=== PATIENT | female | born 1935 | race Caucasian/White ===

== ENCOUNTER 2016-12-12 08:34 | Day surgery (SDC) | payer BC ==
[2016-12-09 12:02] LABS: HEMOGLOBIN 9.9 g/dL (12.0-16.0)
[2016-12-09 12:03] LABS: HEMATOCRIT 31.9 % (36.0-48.0)
[2016-12-09 12:12] LABS: BUN (BLOOD UREA NITROGEN) 17 MG/DL (6-23); CHLORIDE, SERUM 108 MMOL/L (96-112); CO2 (CARBON DIOXIDE) 27 MMOL/L (24-34); CREATININE 0.87 MG/DL (0.55-1.02); GFR AFRICAN AMERICAN 73 ML/MIN (>=60); GFR NON AFRICAN AMERICAN 63 ML/MIN (>=60); GLUCOSE, SERUM 108 MG/DL (60-99); POTASSIUM, SERUM 4.3 MMOL/L (3.5-5.3); SODIUM, SERUM 142 MMOL/L (135-148)
[~2016-12-12] VITALS: Ht 162.6 cm; Wt 72.6 kg
--- NOTE | ~2016-12-12 | OP ---
Record Of Operation [facility] [address] [place]. 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 PROCEDURES PERFORMED: 1. Abdominal aortogram and bilateral iliac artery angiography with catheterization. 2. Thrombectomy of the right common and external iliac artery with a Pathway 2.4/3.4 catheter, secondary angioplasty 7 x 150 balloon followed by a 7 x 150 Viabahn of the common and external iliac artery. 3. Thrombectomy of the left common and external iliac artery with secondary angioplasty 7 x 150 balloon and 7 x 150 Viabahn stent reconstruction. ANESTHESIA: Local MAC. COMPLICATIONS: None. INDICATION FOR PROCEDURE: Secondary to this pleasant 81-year-old critically ill patient presenting with evidence of bilateral critical ischemia, recommendations were made for arteriography to further define her peripheral vascular disease and repair this if appropriate. Risks and benefits were discussed. Consent was obtained. DETAILS OF PROCEDURE: The patient was brought to the endovascular operating room, placed in the supine position, prepped and draped in routine sterile fashion with attention to the bilateral groin region. The right femoral artery was then cannulated, micropuncture needle followed by wire and sheath. Arteriogram demonstrated occlusion of the patency of the common femoral artery, but occlusion of the external iliac artery. A wire was then passed through this occlusion, through the stent all into the aorta and an abdominal aortogram was performed showing a patent aortic stent and then however occluded common and external iliac stents. Next, a 0.14 wire was then placed and thrombectomy was performed using the pathway 2.4/3.4 catheter retrograde from the external into the common iliac artery into the aorta. Postangioplasty was then performed with a 7 x 150 balloon throughout the external iliac artery, common iliac artery, and abdominal aorta showing a wide patency of this vessel at this point. Next thrombectomy was then performed to the left common and external iliac artery in similar technique and aorta. Angioplasty was performed with a 7 x 150 balloon and then completion imaging showed this to be patent. A 7 x 150 stent was then passed into the common iliac artery on the right and deployed all into the external iliac artery on the right. Next, to the left a 7 x 150 Viabahn stent was passed into the common iliac artery on the left and deployed into the left external iliac artery. Postangioplasty was then completed. Arteriograms demonstrated wide patency of these vessels with excellent flow into the lower extremities. At this point, wires, catheters, and sheaths were then removed. The bilateral groins were closed with StarClose. The patient tolerated the procedure well. Record Of Operation [place] [id number] [facility] [place]. [address] NAME: DARRON MANUEL : 39 STATUS : [facility] PAT#: [id number] AGE: 81 ADM/REG DATE : 12/12/16 MR#: [id number] REPORT SERV DATE: 12/31/16 DICTATED BY: DUONG CHAMORRO DATE: 12/30/16 REPORT STATUS : Draft TRANSCRIBED BY: ERIC DATE: 12/30/16 CL/ERIC Duong Chamorro M.D. / [id number] CC: Keny Landry NP
[~2016-12-12 08:34] MED LIST: ACET500CAP PO; ASA5GR PO; ASAB PO; C5 PO; CALCIUM PO; CALTRAT600 PO; CELEXA20 PO; COUMADIN3 MG PO; COUMADIN4 MG PO; DSS PO; ELDERTONIC PO; FESO4 PO; FLONASE NAS; LIPOTRIAD1 CAP PO; MAGNESIUM PO; MULTIPLE VIT PO; NEXIUM40 PO; PCET PO; PLAVIX PO; PRAVAC PO; PREV30 PO; PROAIR HFA INH; PROLENSA1.6 ML OPH; RESTASIS OPH; SPIRO25 PO; T PO; VIT B COMPLEX; VITAMIN B COMPLEX PO; VITAMIN C100 MG PO; VITAMIN D2000 UNIT PO
[2016-12-12 09:47] LABS: INTERNATIONAL NORMAL RATI 1.1 UNITS (-)
[2016-12-12] MEDS ORDERED: PLAVIX PO (14:12)
== END 2016-12-12 17:23 | disposition home or self-care (01) ==
LOC: SDC 08:34 → SSU1 13:26 → SDC 13:30
PROVIDERS: Specialist
PROC: B41DZZZ Fluoroscopy of Aorta and Bilateral Lower Extremity Arteries (ICD-10-PCS; principal; 2016-12-12 11:15)
PROC: 047H3ZZ Dilation of Right External Iliac Artery, Percutaneous Approach (ICD-10-PCS; 2016-12-12 11:15)
PROC: 047C3ZZ Dilation of Right Common Iliac Artery, Percutaneous Approach (ICD-10-PCS; 2016-12-12 11:15)
PROC: 04CD3ZZ Extirpation of Matter from Left Common Iliac Artery, Percutaneous Approach (ICD-10-PCS; 2016-12-12 11:15)
PROC: 04CJ3ZZ Extirpation of Matter from Left External Iliac Artery, Percutaneous Approach (ICD-10-PCS; 2016-12-12 11:15)
DX: T82.598A Other mechanical complication of other cardiac and vascular devices and implants, initial encounter (principal); I73.9 Peripheral vascular disease, unspecified; I25.10 Atherosclerotic heart disease of native coronary artery without angina pectoris; I10 Essential (primary) hypertension; E78.00 Pure hypercholesterolemia, unspecified; J44.9 Chronic obstructive pulmonary disease, unspecified; M19.90 Unspecified osteoarthritis, unspecified site; K21.9 Gastro-esophageal reflux disease without esophagitis; K63.5 Polyp of colon; Z85.038 Personal history of other malignant neoplasm of large intestine; Z87.891 Personal history of nicotine dependence; Z96.1 Presence of intraocular lens; Z98.41 Cataract extraction status, right eye; Z98.42 Cataract extraction status, left eye; Z90.89 Acquired absence of other organs; Z90.49 Acquired absence of other specified parts of digestive tract; Z90.710 Acquired absence of both cervix and uterus; Z88.0 Allergy status to penicillin; Z88.1 Allergy status to other antibiotic agents; Z88.2 Allergy status to sulfonamides; Z88.5 Allergy status to narcotic agent; Z98.51 Tubal ligation status; Z79.82 Long term (current) use of aspirin; Z79.01 Long term (current) use of anticoagulants; Z79.899 Other long term (current) drug therapy; Z98.890 Other specified postprocedural states
CPT/HCPCS: 37184; 37185; 37221; 37222; 37246; 71010; 75625; 80048; 85014; 85018; 85610; 93005; A9270-GY; C1714; C1725; C1760; C1769; C1874; C1887; C1894; J2370; J3010; Q9967